=== PATIENT | female | born 1985 | race Caucasian/White ===

== ENCOUNTER 2019-05-01 19:25 | Emergency (ER) | payer BC ==
[~2019-05-01] VITALS: Ht 165.1 cm; Wt 75.3 kg
[2019-05-01 19:37] VITALS: Ht 165.1 cm; Wt 75.3 kg
[2019-05-01 20:49] LABS: BASOPHIL % 0.6 % (0-2); PLATELET COUNT 284 x10^3mcL (130-400); RED CELL DISTRIBUTION WIDTH 13.4 % (11.5-14.5)
[2019-05-01 21:05] LABS: ALBUMIN 3.6 g/dL (3.4-5.0); ALKALINE PHOSPHATASE 77 U/L (46-116); ALT/SGPT 24 U/L (14-59); AST/SGOT 11 U/L (15-37); BILIRUBIN TOTAL 0.2 mg/dL (0.20-1.00); CHLORIDE SERUM 106 mmol/L (98-107); CREATININE SERUM 0.8 mg/dL (0.6-1.0); GFR1 > 60 mL/min; GLUCOSE SERUM 78 mg/dL (74-106); LIPASE 196 IU/L (73-393); POTASSIUM SERUM 4.1 mmol/L (3.5-5.1); SODIUM SERUM 141 mmol/L (136-145); TOTAL PROTEIN, SERUM 7.6 g/dL (6.4-8.2)
[2019-05-01 21:09] LABS: CALCIUM 8.6 mg/dL (8.5-10.1)
[2019-05-01 22:56] VITALS: BP 109/61
== END 2019-05-01 22:56 | disposition home or self-care (01) ==
LOC: ED 19:25
PROVIDERS: Specialist
DX: R10.813 Right lower quadrant abdominal tenderness (principal); R19.7 Diarrhea, unspecified; Z98.890 Other specified postprocedural states
CPT/HCPCS: J1885; J2405; J7030

== ENCOUNTER 2019-09-25 09:39 | Emergency (ER) | payer BC ==
[~2019-09-25] VITALS: Ht 165.1 cm; Wt 79.8 kg
[2019-09-25 09:44] VITALS: Ht 165.1 cm; Wt 79.8 kg
[2019-09-25 10:57] VITALS: BP 125/74
== END 2019-09-25 10:57 | disposition home or self-care (01) ==
LOC: ED 09:39
DX: S93.402A Sprain of unspecified ligament of left ankle, initial encounter (principal); W23.0XXA Caught, crushed, jammed, or pinched between moving objects, initial encounter; Y93.89 Activity, other specified; Y92.89 Other specified places as the place of occurrence of the external cause; Y99.8 Other external cause status
CPT/HCPCS: Q0092